=== PATIENT | male | born 1960 | race Two or more races ===

== ENCOUNTER 2021-10-17 09:52 | Emergency (ER) | payer OTHER ==
[~2021-10-17] VITALS: Ht 180.3 cm; Wt 103.4 kg
[2021-10-17] MEDS ORDERED: AUGMENTIN600 MG/5 M (10:13)
== END 2021-10-17 14:41 | disposition home or self-care (01) ==
LOC: ER 09:52
DX: H66.90 Otitis media, unspecified, unspecified ear (principal); Z20.822 Contact with and (suspected) exposure to COVID-19

== ENCOUNTER 2021-10-17 14:00 | Outpatient (CLI) | payer OTHER ==
[~2021-10-17 14:00] MED LIST: AUGMENTIN600 MG/5 M
== END 2021-10-17 14:30 | disposition home or self-care (01) ==
LOC: ASH CLINIC 14:00
PROVIDERS: ATTEND Emergency Medicine
DX: U07.1 COVID-19 (principal); Z23 Encounter for immunization

== ENCOUNTER 2023-10-15 16:48 | Outpatient (CLI) | payer OTHER ==
[2023-10-15 17:15] LABS: HEMATOCRIT 46.5 % (39.0-48.0); HEMOGLOBIN 15.9 g/dL (13-16.00); MEAN CELL VOLUME 92.4 fL (80.0-100.00); MEAN CORPUSCULAR HEMOGLOBIN 31.7 pg (27.00-32.0); MEAN CORPUSCULAR HGB CONC 34.3 g/dl (32.0-36.0); PLATELET COUNT 157 K/uL (150-450); RED BLOOD COUNT 5.03 M/uL (4.00-6.00); RED CELL DISTRIBUTION WIDTH 13.5 % (11.5-14.5)
[2023-10-15 17:36] LABS: BILIRUBIN TOTAL 0.63 mg/dL (0.3-1.2); CALCIUM 8.9 mg/dL (8.5-10.1); CREATININE SERUM 1.15 mg/dL (0.70-1.30); GFR 64.44; POTASSIUM 4.39 mEq/L (3.5-5.1)
[2023-10-15 18:03] LABS: MYCOPLASMA PNEUMONIAE IGM NON REACTIVE (NO REACTIVE)
== END 2023-10-15 16:58 | disposition home or self-care (01) ==
LOC: LAB 16:48
DX: J11.1 Influenza due to unidentified influenza virus with other respiratory manifestations (principal); R50.9 Fever, unspecified; A49.3 Mycoplasma infection, unspecified site

== ENCOUNTER 2025-06-28 13:49 | Emergency (ER) | payer OTHER ==
[~2025-06-28] VITALS: Ht 180.3 cm; Wt 104.3 kg
[2025-06-28] MEDS ORDERED: KETOROLAC TROMETHAMINE 60 MG VIAL IM ONE ×2 (14:00)
[2025-06-28 14:20] LABS: BASO % 0.9 % (0.1-1.2); EOS # 0.26 (0.04-0.54); EOS % 4.6 % (0.7-7.0); LYMPH # 1.59 (1.18-3.74); LYMPH % 28.3 % (19.3-53.1); MEAN PLATELET VOLUME 9.00 fl (9.4-12.4); MONO # 0.62 (0.24-0.82); MONO % 11.1 % (4.7-12.5); NEUT # 3.08 (1.56-6.13); NEUT % 54.9 % (34.0-71.1); RED CELL DISTRIBUTION WIDTH 12.3 % (11.6-14.4)
== END 2025-06-28 16:14 | disposition home or self-care (01) ==
LOC: ER 13:49
PROVIDERS: General Practice
DX: S99.822A Other specified injuries of left foot, initial encounter (principal); W22.8XXA Striking against or struck by other objects, initial encounter; Y93.89 Activity, other specified; Y92.89 Other specified places as the place of occurrence of the external cause